=== PATIENT | female | born 1945 | race Caucasian/White ===

== ENCOUNTER 2017-02-06 10:06 | Inpatient (IN) | payer OTHER, MEDICARE ==
[~2017-02-06] VITALS: Ht 170.2 cm; Wt 104.3 kg
[2017-02-06 12:03] LABS: PLATELET COUNT 599 x10^3mcL (130-400); RED CELL DISTRIBUTION WIDTH 25.1 % (11.5-14.5)
[2017-02-06 12:10] LABS: ALKALINE PHOSPHATASE 110 U/L (46-116); ALT/SGPT 22 U/L (14-59); AST/SGOT 22 U/L (15-37); BILIRUBIN TOTAL 0.6 mg/dL (0.20-1.00); CALCIUM 7.7 mg/dL (8.5-10.1); CARBON DIOXIDE 25.9 mmol/L (21-32); CHLORIDE SERUM 90 mmol/L (98-107); CREATININE SERUM 1.2 mg/dL (0.6-1.0); GLUCOSE SERUM 100 mg/dL (74-106); POTASSIUM SERUM 3.9 mmol/L (3.5-5.1); TOTAL PROTEIN, SERUM 6.4 g/dL (6.4-8.2)
[2017-02-06 12:17] LABS: ALBUMIN 2.8 g/dL (3.4-5.0); SODIUM SERUM 124 mmol/L (136-145)
[2017-02-06 13:04] LABS: BAND NEUTROPHIL 4 % (0-10); BASOPHIL 0 % (0-2); MONOCYTE 8 % (0-7); SEGMENTED NEUTROPHILS 83 % (37-75)
[2017-02-06 13:05] LABS: rbc morphology (normal/abnorm) ABNORMAL (NORMAL)
[2017-02-06] MEDS ORDERED: RANITIDINE HYD300 MG PO (13:26)
[2017-02-06] MEDS ORDERED: ACYCLOVIR400 MG PO (13:27)
[2017-02-06] MEDS ORDERED: SYNTHROID0.125 MG PO (13:27)
[2017-02-06] MEDS ORDERED: COUMADIN2.5 MG PO (13:28)
[2017-02-06] MEDS ORDERED: ZESTRIL20 MG PO (13:28)
[2017-02-06] MEDS ORDERED: TOPROL XL100 MG PO (13:28)
[2017-02-06] MEDS ORDERED: ASPIR 8181 MG PO ×2 (13:30)
[2017-02-06] MEDS ORDERED: EFFEXOR-XR150 MG PO (13:33)
[2017-02-06] MEDS ORDERED: NOR10T PO (13:33)
[2017-02-06] MEDS ORDERED: PREDNISONE20 MG PO (13:34)
[2017-02-06] MEDS ORDERED: FLOVENT HF0.044 MG/1 IH (13:35)
[2017-02-06] MEDS ORDERED: NITROGLYCERIN0.4 MG SL (13:35)
[2017-02-06 14:29] LABS: CHOLESTEROL/HDL RATIO 1.8
[2017-02-06 14:38] LABS: FREE T4 1.77 ng/dL (0.76-1.46); FREE THYROXINE INDEX 3.3 ug/dL (1.4-4.5); T4(THYROXINE) 7.8 ug/dL (4.7-13.3)
[2017-02-06 14:39] LABS: T3 TOTAL 0.67 ng/mL
[2017-02-06 15:12] VITALS: BP 122/69
[2017-02-06 16:00] VITALS: BP 124/54
[2017-02-06 16:43] VITALS: BP 135/69
[2017-02-06 18:37] LABS: UA SPECIFIC GRAVITY 1.025 (1.005-1.035); microscopic required? YES; urine erythrocyte TRACE (NEGATIVE)
[2017-02-06 21:09] VITALS: Ht 170.2 cm; Wt 104.3 kg
[2017-02-06 22:11] VITALS: BP 165/48
[2017-02-07] VITALS (8 sets, daily range): BP systolic 116–130; BP diastolic 52–90
[2017-02-07 07:21] LABS: CALCIUM 7.2 mg/dL (8.5-10.1); CARBON DIOXIDE 26.6 mmol/L (21-32); CHLORIDE SERUM 92 mmol/L (98-107); CREATININE SERUM 1.1 mg/dL (0.6-1.0); GLUCOSE SERUM 110 mg/dL (74-106); MAGNESIUM 1.6 mg/dL (1.8-2.4); PHOSPHOROUS 3.7 mg/dL (2.5-4.9); POTASSIUM SERUM 3.7 mmol/L (3.5-5.1); SODIUM SERUM 126 mmol/L (136-145)
[2017-02-07 07:58] LABS: BASOPHIL % 0 % (0-2); RED CELL DISTRIBUTION WIDTH 26.4 % (11.5-14.5)
[2017-02-07 10:41] LABS: rbc morphology (normal/abnorm) ABNORMAL (NORMAL)
[2017-02-07 10:43] LABS: PLATELET COUNT 435 x10^3mcL (130-400)
[2017-02-07 12:33] LABS: ALBUMIN 2.2 g/dL (3.4-5.0); BILIRUBIN DIRECT 0.23 mg/dL (0.0-0.2); BILIRUBIN TOTAL 0.6 mg/dL (0.20-1.00); TOTAL PROTEIN, SERUM 5.4 g/dL (6.4-8.2)
[2017-02-07 13:44] LABS: BASOPHIL % 0 % (0-2); PLATELET COUNT 446 x10^3mcL (130-400); RED CELL DISTRIBUTION WIDTH 25.1 % (11.5-14.5)
[2017-02-07 14:21] LABS: rbc morphology (normal/abnorm) ABNORMAL (NORMAL)
[2017-02-08 01:00] VITALS: BP 144/87
[2017-02-08 06:02] VITALS: BP 141/69
[2017-02-08 06:24] LABS: BASOPHIL % 0 % (0-2); PLATELET COUNT 411 x10^3mcL (130-400); RED CELL DISTRIBUTION WIDTH 23.6 % (11.5-14.5)
[2017-02-08 06:25] LABS: rbc morphology (normal/abnorm) ABNORMAL (NORMAL)
[2017-02-08 06:36] LABS: CALCIUM 7.7 mg/dL (8.5-10.1); CARBON DIOXIDE 27.7 mmol/L (21-32); CHLORIDE SERUM 93 mmol/L (98-107); CREATININE SERUM 0.9 mg/dL (0.6-1.0); GLUCOSE SERUM 97 mg/dL (74-106); MAGNESIUM 1.6 mg/dL (1.8-2.4); PHOSPHOROUS 3.1 mg/dL (2.5-4.9); POTASSIUM SERUM 3.7 mmol/L (3.5-5.1); SODIUM SERUM 129 mmol/L (136-145)
[2017-02-08 10:51] VITALS: BP 172/78
[2017-02-08 15:03] VITALS: BP 155/59
[2017-02-08 18:39] VITALS: BP 130/54
[2017-02-08 21:46] VITALS: BP 121/52
[2017-02-09 06:03] VITALS: BP 125/59
[2017-02-09 06:40] LABS: CALCIUM 7.7 mg/dL (8.5-10.1); CARBON DIOXIDE 29.9 mmol/L (21-32); CHLORIDE SERUM 94 mmol/L (98-107); CREATININE SERUM 0.8 mg/dL (0.6-1.0); GLUCOSE SERUM 97 mg/dL (74-106); MAGNESIUM 1.9 mg/dL (1.8-2.4); PHOSPHOROUS 3.5 mg/dL (2.5-4.9); POTASSIUM SERUM 3.4 mmol/L (3.5-5.1); SODIUM SERUM 129 mmol/L (136-145)
[2017-02-09 06:43] LABS: BASOPHIL % 0.4 % (0-2); PLATELET COUNT 389 x10^3mcL (130-400)
[2017-02-09 09:29] VITALS: BP 148/63
[2017-02-09 13:58] VITALS: BP 142/78
[2017-02-09 18:05] VITALS: BP 110/55
[2017-02-09 21:10] VITALS: BP 98/50
[2017-02-10 06:06] LABS: BASOPHIL % 0.1 % (0-2); PLATELET COUNT 367 x10^3mcL (130-400)
[2017-02-10 06:31] LABS: CALCIUM 7.8 mg/dL (8.5-10.1); CARBON DIOXIDE 29.6 mmol/L (21-32); CHLORIDE SERUM 94 mmol/L (98-107); CREATININE SERUM 0.9 mg/dL (0.6-1.0); GLUCOSE SERUM 89 mg/dL (74-106); MAGNESIUM 1.7 mg/dL (1.8-2.4); PHOSPHOROUS 3.9 mg/dL (2.5-4.9); POTASSIUM SERUM 3.1 mmol/L (3.5-5.1); SODIUM SERUM 130 mmol/L (136-145)
[2017-02-10 06:53] LABS: RED CELL DISTRIBUTION WIDTH 24.6 % (11.5-14.5)
[2017-02-10 07:07] VITALS: BP 121/47
[2017-02-10 09:19] VITALS: BP 138/68
[2017-02-10 14:05] VITALS: BP 120/65
[2017-02-10 18:50] VITALS: BP 166/45
[2017-02-10 19:50] VITALS: BP 135/63
[2017-02-10 22:20] VITALS: BP 109/54
[2017-02-11 06:04] VITALS: BP 121/52
[2017-02-11 06:36] LABS: BASOPHIL % 0.2 % (0-2); PLATELET COUNT 388 x10^3mcL (130-400)
[2017-02-11 06:46] LABS: CALCIUM 8.1 mg/dL (8.5-10.1); CARBON DIOXIDE 28.1 mmol/L (21-32); CHLORIDE SERUM 94 mmol/L (98-107); GLUCOSE SERUM 88 mg/dL (74-106); MAGNESIUM 1.7 mg/dL (1.8-2.4); PHOSPHOROUS 4.2 mg/dL (2.5-4.9); SODIUM SERUM 129 mmol/L (136-145)
[2017-02-11 07:32] LABS: RED CELL DISTRIBUTION WIDTH 24.1 % (11.5-14.5)
[2017-02-11 08:22] VITALS: BP 132/66
[2017-02-11 08:55] VITALS: BP 132/66
[2017-02-11 09:20] LABS: ovalocyte/elliptocyte 1+; rbc morphology (normal/abnorm) ABNORMAL (NORMAL); tear drop cell (dacryocyte) 2+
[2017-02-11 17:35] VITALS: BP 111/66
[2017-02-11 19:30] VITALS: BP 124/57
[2017-02-11 21:33] VITALS: BP 124/57
[2017-02-12 06:20] VITALS: BP 134/67
[2017-02-12 06:46] LABS: CALCIUM 8.2 mg/dL (8.5-10.1); CARBON DIOXIDE 28.1 mmol/L (21-32); CHLORIDE SERUM 95 mmol/L (98-107); GLUCOSE SERUM 85 mg/dL (74-106); MAGNESIUM 1.6 mg/dL (1.8-2.4); PHOSPHOROUS 4.6 mg/dL (2.5-4.9); POTASSIUM SERUM 4.2 mmol/L (3.5-5.1); SODIUM SERUM 129 mmol/L (136-145)
[2017-02-12 07:09] LABS: BASOPHIL % 0.5 % (0-2); PLATELET COUNT 371 x10^3mcL (130-400); RED CELL DISTRIBUTION WIDTH 24.2 % (11.5-14.5)
[2017-02-12 10:20] VITALS: BP 126/57
[2017-02-12 18:55] VITALS: BP 105/52
[2017-02-12 19:20] VITALS: BP 117/53
[2017-02-12 21:55] VITALS: BP 117/53
[2017-02-13 05:40] VITALS: BP 113/59
[2017-02-13 06:29] LABS: PLATELET COUNT 372 x10^3mcL (130-400)
[2017-02-13 06:43] LABS: BASOPHIL % 0 % (0-2); CALCIUM 8.2 mg/dL (8.5-10.1); CARBON DIOXIDE 27.1 mmol/L (21-32); CHLORIDE SERUM 93 mmol/L (98-107); CREATININE SERUM 1.1 mg/dL (0.6-1.0); GLUCOSE SERUM 82 mg/dL (74-106); MAGNESIUM 1.8 mg/dL (1.8-2.4); PHOSPHOROUS 4.7 mg/dL (2.5-4.9); POTASSIUM SERUM 3.8 mmol/L (3.5-5.1); RED CELL DISTRIBUTION WIDTH 23.7 % (11.5-14.5); SODIUM SERUM 128 mmol/L (136-145)
[2017-02-13 06:44] LABS: rbc morphology (normal/abnorm) ABNORMAL (NORMAL)
[2017-02-13 09:55] VITALS: BP 138/56
[2017-02-13] MEDS ORDERED: COU2 PO (17:07)
[2017-02-13] MEDS ORDERED: ZOS3PM IV (17:08)
[2017-02-13] MEDS ORDERED: CAR60 PO (17:11)
[2017-02-13] MEDS ORDERED: LASIX20 MG PO (17:12)
[2017-02-13 18:24] VITALS: BP 102/64
[2017-02-13 18:30] VITALS: BP 102/64
== END 2017-02-13 20:28 | DRG 579 ==
LOC: ED 10:06 → DU 12:50 → MU 12:50 → DU 14:18 → MU 02-10 23:46
PROVIDERS: Emergency Medicine; Family Medicine; ADMIT Family Medicine
PROC: 0KBT0ZZ Excision of Left Lower Leg Muscle, Open Approach (ICD-10-PCS; principal; 2017-02-08)
DX: L03.116 Cellulitis of left lower limb (principal); N17.0 Acute kidney failure with tubular necrosis; E43 Unspecified severe protein-calorie malnutrition; I50.43 Acute on chronic combined systolic (congestive) and diastolic (congestive) heart failure; N39.0 Urinary tract infection, site not specified; E87.1 Hypo-osmolality and hyponatremia; D62 Acute posthemorrhagic anemia; L97.829 Non-pressure chronic ulcer of other part of left lower leg with unspecified severity; B96.5 Pseudomonas (aeruginosa) (mallei) (pseudomallei) as the cause of diseases classified elsewhere; I83.028 Varicose veins of left lower extremity with ulcer other part of lower leg; I11.0 Hypertensive heart disease with heart failure; I48.91 Unspecified atrial fibrillation; T38.0X5A Adverse effect of glucocorticoids and synthetic analogues, initial encounter; I16.0 Hypertensive urgency; B00.9 Herpesviral infection, unspecified; B37.2 Candidiasis of skin and nail; I25.10 Atherosclerotic heart disease of native coronary artery without angina pectoris; E05.80 Other thyrotoxicosis without thyrotoxic crisis or storm; F41.8 Other specified anxiety disorders; Z79.01 Long term (current) use of anticoagulants; Z79.82 Long term (current) use of aspirin; Z79.52 Long term (current) use of systemic steroids; Z95.5 Presence of coronary angioplasty implant and graft; Z85.3 Personal history of malignant neoplasm of breast; Z90.11 Acquired absence of right breast and nipple; Z85.830 Personal history of malignant neoplasm of bone; Z87.891 Personal history of nicotine dependence; Z68.36 Body mass index [BMI] 36.0-36.9, adult; Y92.039 Unspecified place in apartment as the place of occurrence of the external cause
CPT/HCPCS: 83880; 84439; 94150; 97110-GP; 97116-GP; 97530-GP; J0290; J1450; J1644; J1940; J2001; J2543; J3430; J3475; J3490; J7030; J7050; J7512; J7620; J7633; P9016; Q0092; Q0163

== ENCOUNTER 2017-02-26 06:18 | Observation (INO) | payer OTHER, MEDICARE ==
[~2017-02-26] VITALS: Ht 167.6 cm; Wt 108.5 kg
[~2017-02-26 06:18] MED LIST: ACYCLOVIR400 MG PO; ASPIR 8181 MG PO; CAR60 PO; COU2 PO; COUMADIN2.5 MG PO; EFFEXOR-XR150 MG PO; FLOVENT HF0.044 MG/1 IH; LASIX20 MG PO; NITROGLYCERIN0.4 MG SL; NOR10T PO; PREDNISONE20 MG PO; RANITIDINE HYD300 MG PO; SYNTHROID0.125 MG PO; TOPROL XL100 MG PO; ZESTRIL20 MG PO; ZOS3PM IV
[2017-02-26 07:17] LABS: BASOPHIL % 0 % (0-2)
[2017-02-26 07:18] LABS: CHLORIDE SERUM 94 mmol/L (98-107); POTASSIUM SERUM 5.2 mmol/L (3.5-5.1); SODIUM SERUM 127 mmol/L (136-145)
[2017-02-26 07:52] LABS: ALBUMIN 2.4 g/dL (3.4-5.0); ALKALINE PHOSPHATASE 99 U/L (46-116); ALT/SGPT 11 U/L (14-59); AST/SGOT 26 U/L (15-37); BILIRUBIN TOTAL 0.44 mg/dL (0.20-1.00); CALCIUM 8.5 mg/dL (8.5-10.1); CARBON DIOXIDE 27.5 mmol/L (21-32); CREATININE SERUM 1.3 mg/dL (0.6-1.0); GLUCOSE SERUM 92 mg/dL (74-106); TOTAL PROTEIN, SERUM 6.2 g/dL (6.4-8.2)
[2017-02-26 09:25] LABS: RED CELL DISTRIBUTION WIDTH 24.1 % (11.5-14.5)
[2017-02-26 09:26] LABS: PLATELET COUNT 562 x10^3mcL (130-400)
[2017-02-26 11:19] LABS: CHOLESTEROL/HDL RATIO 3.4; MAGNESIUM 1.8 mg/dL (1.8-2.4); PHOSPHOROUS 5.1 mg/dL (2.5-4.9)
[2017-02-26 11:29] LABS: FREE T4 1.62 ng/dL (0.76-1.46); FREE THYROXINE INDEX 3.4 ug/dL (1.4-4.5); T4(THYROXINE) 8.5 ug/dL (4.7-13.3)
[2017-02-26 11:33] LABS: T3 TOTAL 0.87 ng/mL
[2017-02-26 12:06] VITALS: BP 111/65
[2017-02-26 21:54] VITALS: BP 115/53
[2017-02-27 00:59] VITALS: BP 115/53
[2017-02-27 02:17] LABS: UA SPECIFIC GRAVITY 1.025 (1.005-1.035); microscopic required? YES; urine erythrocyte NEGATIVE (NEGATIVE)
[2017-02-27 02:27] LABS: AMPHETAMINE QUAL UR NONE DETECTED (NEG <=1000)
[2017-02-27 06:24] VITALS: BP 107/61
[2017-02-27 07:15] LABS: BASOPHIL % 0.6 % (0-2)
[2017-02-27 07:58] LABS: CALCIUM 8.2 mg/dL (8.5-10.1); CARBON DIOXIDE 24.7 mmol/L (21-32); CHLORIDE SERUM 96 mmol/L (98-107); CREATININE SERUM 1.5 mg/dL (0.6-1.0); MAGNESIUM 1.9 mg/dL (1.8-2.4); POTASSIUM SERUM 4.6 mmol/L (3.5-5.1); SODIUM SERUM 130 mmol/L (136-145)
[2017-02-27 08:08] LABS: GLUCOSE SERUM 57 mg/dL (74-106)
[2017-02-27 08:33] LABS: PLATELET COUNT 428 x10^3mcL (130-400); RED CELL DISTRIBUTION WIDTH 24.9 % (11.5-14.5)
[2017-02-27 09:07] VITALS: BP 136/78
[2017-02-27 13:19] VITALS: BP 103/45
[2017-02-27 17:42] VITALS: BP 82/31
[2017-02-27 21:23] VITALS: BP 84/42
[2017-02-28 06:18] VITALS: BP 86/53
[2017-02-28 07:46] LABS: BASOPHIL % 1.8 % (0-2)
[2017-02-28 07:48] LABS: PLATELET COUNT 438 x10^3mcL (130-400); RED CELL DISTRIBUTION WIDTH 24.8 % (11.5-14.5)
[2017-02-28 08:04] LABS: CALCIUM 7.9 mg/dL (8.5-10.1); CARBON DIOXIDE 27.7 mmol/L (21-32); CHLORIDE SERUM 99 mmol/L (98-107); CREATININE SERUM 1.7 mg/dL (0.6-1.0); GLUCOSE SERUM 99 mg/dL (74-106); MAGNESIUM 1.8 mg/dL (1.8-2.4); POTASSIUM SERUM 4.6 mmol/L (3.5-5.1); SODIUM SERUM 133 mmol/L (136-145)
[2017-02-28 09:45] VITALS: BP 129/54
[2017-02-28 14:33] VITALS: BP 114/42
[2017-02-28] MEDS ORDERED: BACTRIM DS1 TAB PO (15:27)
[2017-02-28] MEDS ORDERED: LAC PO (15:28)
[2017-02-28 17:00] VITALS: BP 118/55
== END 2017-02-28 17:47 | DRG 640 ==
LOC: ED 06:18 → DU 10:23
PROVIDERS: Emergency Medicine; Family Medicine; ADMIT Family Medicine
DX: E87.1 Hypo-osmolality and hyponatremia (principal); I50.43 Acute on chronic combined systolic (congestive) and diastolic (congestive) heart failure; E43 Unspecified severe protein-calorie malnutrition; N17.0 Acute kidney failure with tubular necrosis; N39.0 Urinary tract infection, site not specified; I42.9 Cardiomyopathy, unspecified; B00.89 Other herpesviral infection; E86.0 Dehydration; I10 Essential (primary) hypertension; E87.5 Hyperkalemia; M25.522 Pain in left elbow; K64.8 Other hemorrhoids; E83.39 Other disorders of phosphorus metabolism; D47.3 Essential (hemorrhagic) thrombocythemia; I48.91 Unspecified atrial fibrillation; E87.8 Other disorders of electrolyte and fluid balance, not elsewhere classified; F41.8 Other specified anxiety disorders; E03.9 Hypothyroidism, unspecified; M19.90 Unspecified osteoarthritis, unspecified site; E66.9 Obesity, unspecified; Z68.38 Body mass index [BMI] 38.0-38.9, adult; Z79.01 Long term (current) use of anticoagulants; Z95.5 Presence of coronary angioplasty implant and graft
CPT/HCPCS: 80307; 83880; 84439; 97530-GP; G0378; J0696; J2270; J3490; J7030; J7620; Q0092

== ENCOUNTER 2017-03-28 11:36 | Inpatient (IN) | payer OTHER, MEDICARE ==
[~2017-03-28] VITALS: Ht 167.6 cm; Wt 112.6 kg
[~2017-03-28 11:36] MED LIST changes: +BACTRIM DS1 TAB PO; +LAC PO
[2017-03-28 12:21] LABS: PLATELET COUNT 346 x10^3mcL (130-400)
[2017-03-28 12:23] LABS: BASOPHIL % 0 % (0-2); RED CELL DISTRIBUTION WIDTH 22.4 % (11.5-14.5)
[2017-03-28 12:38] LABS: ALKALINE PHOSPHATASE 120 U/L (46-116); ALT/SGPT 15 U/L (14-59); AST/SGOT 28 U/L (15-37); BILIRUBIN TOTAL 0.5 mg/dL (0.20-1.00); CALCIUM 8.1 mg/dL (8.5-10.1); CARBON DIOXIDE 24.1 mmol/L (21-32); CREATININE SERUM 1.8 mg/dL (0.6-1.0); GLUCOSE SERUM 79 mg/dL (74-106); POTASSIUM SERUM 4.7 mmol/L (3.5-5.1)
[2017-03-28 12:50] LABS: CHLORIDE SERUM 90 mmol/L (98-107)
[2017-03-28 12:53] LABS: ALBUMIN 2.7 g/dL (3.4-5.0); TOTAL PROTEIN, SERUM 5.9 g/dL (6.4-8.2)
[2017-03-28 12:54] LABS: SODIUM SERUM 124 mmol/L (136-145)
[2017-03-28 14:51] LABS: CHOLESTEROL/HDL RATIO 4.4
[2017-03-28 15:00] LABS: FREE T4 1.33 ng/dL (0.76-1.46); FREE THYROXINE INDEX 2.7 ug/dL (1.4-4.5); T3 TOTAL 0.67 ng/mL; T4(THYROXINE) 6.8 ug/dL (4.7-13.3)
[2017-03-28 15:43] LABS: MAGNESIUM 1.8 mg/dL (1.8-2.4); PHOSPHOROUS 4.7 mg/dL (2.5-4.9)
[2017-03-28 16:43] LABS: URIC ACID 8.2 mg/dL (2.6-6.0)
[2017-03-28 17:48] VITALS: BP 108/48
[2017-03-28 20:49] VITALS: BP 98/52
[2017-03-28 23:34] LABS: microscopic required? NO
[2017-03-28 23:39] LABS: UA SPECIFIC GRAVITY 1.025 (1.005-1.035); urine erythrocyte NEGATIVE (NEGATIVE)
[2017-03-29 04:14] VITALS: BP 98/52
[2017-03-29 05:46] VITALS: BP 131/62
[2017-03-29 06:49] LABS: PLATELET COUNT 268 x10^3mcL (130-400)
[2017-03-29 06:53] LABS: BASOPHIL % 0 % (0-2); RED CELL DISTRIBUTION WIDTH 22.7 % (11.5-14.5)
[2017-03-29 07:04] LABS: CALCIUM 7.8 mg/dL (8.5-10.1); CARBON DIOXIDE 24.6 mmol/L (21-32); CHLORIDE SERUM 90 mmol/L (98-107); CREATININE SERUM 1.7 mg/dL (0.6-1.0); GLUCOSE SERUM 73 mg/dL (74-106); MAGNESIUM 1.8 mg/dL (1.8-2.4); PHOSPHOROUS 4.1 mg/dL (2.5-4.9); POTASSIUM SERUM 4.3 mmol/L (3.5-5.1); SODIUM SERUM 126 mmol/L (136-145)
[2017-03-29 09:29] VITALS: BP 103/50
[2017-03-29 13:47] VITALS: BP 115/47
[2017-03-29 17:07] VITALS: BP 143/57
[2017-03-29 21:49] VITALS: BP 129/45
[2017-03-30 05:56] VITALS: BP 95/50
[2017-03-30 06:09] LABS: PLATELET COUNT 252 x10^3mcL (130-400)
[2017-03-30 06:26] LABS: CARBON DIOXIDE 26.6 mmol/L (21-32); CHLORIDE SERUM 99 mmol/L (98-107); CREATININE SERUM 1.1 mg/dL (0.6-1.0); GLUCOSE SERUM 90 mg/dL (74-106); MAGNESIUM 1.9 mg/dL (1.8-2.4); PHOSPHOROUS 3.1 mg/dL (2.5-4.9); SODIUM SERUM 133 mmol/L (136-145)
[2017-03-30 07:13] LABS: RED CELL DISTRIBUTION WIDTH 22.8 % (11.5-14.5)
[2017-03-30 08:01] LABS: BAND NEUTROPHIL 3 % (0-10); BASOPHIL 0 % (0-2); MONOCYTE 20 % (0-7); SEGMENTED NEUTROPHILS 61 % (37-75); rbc morphology (normal/abnorm) ABNORMAL (NORMAL)
[2017-03-30 08:02] LABS: PLATELET MORPHOLOGY LARGE PLATELET SEEN; tear drop cell (dacryocyte) 1+
[2017-03-30 10:15] VITALS: BP 126/58
[2017-03-30] MEDS ORDERED: FER300 PO (10:59)
[2017-03-30] MEDS ORDERED: PHARMASSURE VI500 MG PO (11:00)
[2017-03-30 12:35] VITALS: BP 126/58
== END 2017-03-30 14:02 | disposition home health service (06) | DRG 640 ==
LOC: ED 11:36 → DU 13:58
PROVIDERS: Emergency Medicine; Family Medicine; ADMIT Family Medicine
DX: E87.1 Hypo-osmolality and hyponatremia (principal); N17.0 Acute kidney failure with tubular necrosis; E43 Unspecified severe protein-calorie malnutrition; C79.51 Secondary malignant neoplasm of bone; I42.9 Cardiomyopathy, unspecified; Z68.41 Body mass index [BMI] 40.0-44.9, adult; I48.2 Chronic atrial fibrillation; T45.515A Adverse effect of anticoagulants, initial encounter; C50.911 Malignant neoplasm of unspecified site of right female breast; I25.10 Atherosclerotic heart disease of native coronary artery without angina pectoris; I10 Essential (primary) hypertension; M19.90 Unspecified osteoarthritis, unspecified site; D64.9 Anemia, unspecified; E89.0 Postprocedural hypothyroidism; F41.0 Panic disorder [episodic paroxysmal anxiety]; E66.01 Morbid (severe) obesity due to excess calories; Z79.01 Long term (current) use of anticoagulants; Z87.891 Personal history of nicotine dependence; Z95.5 Presence of coronary angioplasty implant and graft; Z90.11 Acquired absence of right breast and nipple; Z91.81 History of falling; Y92.009 Unspecified place in unspecified non-institutional (private) residence as the place of occurrence of the external cause
CPT/HCPCS: 83880; 84439; 97110-GP; 97530-GP; J1940; J3430; J3490; J7030; Q0092

== ENCOUNTER 2017-05-09 17:53 | Inpatient (IN) | payer OTHER, MEDICARE ==
[~2017-05-09] VITALS: Ht 167.6 cm; Wt 123.4 kg
[~2017-05-09 17:53] MED LIST changes: +FER300 PO; +PHARMASSURE VI500 MG PO
[2017-05-09] MEDS ORDERED: PRO40 PO (18:23)
[2017-05-09] MEDS ORDERED: LOP100 PO (18:23)
[2017-05-09] MEDS ORDERED: CLARITIN10 MG PO (18:23)
[2017-05-09] MEDS ORDERED: COUMADIN1 MG PO (18:24)
[2017-05-09] MEDS ORDERED: CEPHALEXIN500 M1 PO (18:24)
[2017-05-09] MEDS ORDERED: EFFEXOR XR150 MG PO (18:24)
[2017-05-09 19:04] LABS: BASOPHIL % 0.2 % (0-2); PLATELET COUNT 400 x10^3mcL (130-400)
[2017-05-09 19:06] LABS: RED CELL DISTRIBUTION WIDTH 20.2 % (11.5-14.5)
[2017-05-09 19:09] LABS: ALKALINE PHOSPHATASE 134 U/L (46-116); ALT/SGPT 14 U/L (14-59); AST/SGOT 23 U/L (15-37); CALCIUM 8.2 mg/dL (8.5-10.1); CARBON DIOXIDE 25.4 mmol/L (21-32); CHLORIDE SERUM 92 mmol/L (98-107); CREATININE SERUM 0.8 mg/dL (0.6-1.0); GLUCOSE SERUM 81 mg/dL (74-106); POTASSIUM SERUM 4.8 mmol/L (3.5-5.1); SODIUM SERUM 126 mmol/L (136-145)
[2017-05-09 19:15] LABS: ALBUMIN 2.6 g/dL (3.4-5.0); TOTAL PROTEIN, SERUM 5.8 g/dL (6.4-8.2)
[2017-05-09 19:25] LABS: ovalocyte/elliptocyte 2+; rbc morphology (normal/abnorm) ABNORMAL (NORMAL); tear drop cell (dacryocyte) 1+
[2017-05-09 19:42] LABS: CK-MB 0.9 ng/mL (0-3.6)
[2017-05-09 20:13] LABS: microscopic required? YES; urine erythrocyte NEGATIVE (NEGATIVE)
[2017-05-09 22:20] LABS: MAGNESIUM 1.6 mg/dL (1.8-2.4); PHOSPHOROUS 3.3 mg/dL (2.5-4.9)
[2017-05-09 22:26] LABS: CHOLESTEROL/HDL RATIO 3.1
[2017-05-09 22:28] LABS: T3 TOTAL 0.66 ng/mL
[2017-05-09 22:30] LABS: FREE T4 1.75 ng/dL (0.76-1.46); FREE THYROXINE INDEX 3.4 ug/dL (1.4-4.5); T4(THYROXINE) 8.6 ug/dL (4.7-13.3)
[2017-05-09 22:48] VITALS: BP 136/55
[2017-05-09] MEDS ORDERED: METOPROLOL TAR100 MG PO (23:32)
[2017-05-10] VITALS (7 sets, daily range): BP systolic 97–134; BP diastolic 26–62
[2017-05-10 05:58] LABS: BASOPHIL % 0.1 % (0-2); PLATELET COUNT 370 x10^3mcL (130-400)
[2017-05-10 06:33] LABS: CALCIUM 7.9 mg/dL (8.5-10.1); CHLORIDE SERUM 94 mmol/L (98-107); CREATININE SERUM 0.8 mg/dL (0.6-1.0); GLUCOSE SERUM 82 mg/dL (74-106); MAGNESIUM 1.9 mg/dL (1.8-2.4); PHOSPHOROUS 3.1 mg/dL (2.5-4.9); POTASSIUM SERUM 4.9 mmol/L (3.5-5.1); SODIUM SERUM 127 mmol/L (136-145)
[2017-05-10 07:13] LABS: RED CELL DISTRIBUTION WIDTH 19.4 % (11.5-14.5)
[2017-05-11 06:06] VITALS: BP 91/58
[2017-05-11 06:29] LABS: CALCIUM 7.9 mg/dL (8.5-10.1); CARBON DIOXIDE 28.8 mmol/L (21-32); CHLORIDE SERUM 92 mmol/L (98-107); CREATININE SERUM 0.7 mg/dL (0.6-1.0); GLUCOSE SERUM 81 mg/dL (74-106); MAGNESIUM 1.6 mg/dL (1.8-2.4); PHOSPHOROUS 3.3 mg/dL (2.5-4.9); POTASSIUM SERUM 3.3 mmol/L (3.5-5.1); SODIUM SERUM 128 mmol/L (136-145)
[2017-05-11 06:56] LABS: BASOPHIL % 0.3 % (0-2); PLATELET COUNT 342 x10^3mcL (130-400)
[2017-05-11 06:57] LABS: RED CELL DISTRIBUTION WIDTH 20.1 % (11.5-14.5)
[2017-05-11 07:47] LABS: rbc morphology (normal/abnorm) ABNORMAL (NORMAL)
[2017-05-11 09:21] VITALS: BP 114/50
[2017-05-11 12:21] VITALS: BP 104/52
[2017-05-11 17:45] VITALS: BP 100/49
[2017-05-11 18:01] VITALS: BP 107/61
[2017-05-11 21:33] VITALS: BP 128/53
[2017-05-12 05:33] VITALS: BP 99/60
[2017-05-12 05:54] LABS: RED BLOOD CELLS 3.64 M/mm3 (4.10-5.10)
[2017-05-12 05:57] LABS: PLATELET COUNT 347 x10^3mcL (130-400)
[2017-05-12 06:25] LABS: IRON 13 ug/dL (50-170); TOTAL IRON BINDING CAPACITY 293 ug/dL (250-450)
[2017-05-12 06:42] LABS: BASOPHIL % 0 % (0-2); RED CELL DISTRIBUTION WIDTH 19.9 % (11.5-14.5)
[2017-05-12 07:31] LABS: CARBON DIOXIDE 28.3 mmol/L (21-32); CHLORIDE SERUM 90 mmol/L (98-107); CREATININE SERUM 0.8 mg/dL (0.6-1.0); GLUCOSE SERUM 92 mg/dL (74-106); MAGNESIUM 1.8 mg/dL (1.8-2.4); PHOSPHOROUS 3.5 mg/dL (2.5-4.9); POTASSIUM SERUM 3.1 mmol/L (3.5-5.1); SODIUM SERUM 126 mmol/L (136-145)
[2017-05-12 08:55] VITALS: BP 125/64
[2017-05-12 13:55] VITALS: BP 109/62
[2017-05-12 17:28] VITALS: BP 125/83
[2017-05-12 20:00] VITALS: BP 102/54
[2017-05-13 06:08] VITALS: BP 109/48
[2017-05-13 07:16] LABS: PLATELET COUNT 334 x10^3mcL (130-400)
[2017-05-13 07:26] LABS: CARBON DIOXIDE 23.3 mmol/L (21-32); CHLORIDE SERUM 89 mmol/L (98-107); CREATININE SERUM 0.8 mg/dL (0.6-1.0); GLUCOSE SERUM 99 mg/dL (74-106); POTASSIUM SERUM 3.5 mmol/L (3.5-5.1)
[2017-05-13 07:32] LABS: RED CELL DISTRIBUTION WIDTH 20.5 % (11.5-14.5); SODIUM SERUM 123 mmol/L (136-145)
[2017-05-13 08:55] VITALS: BP 103/61
[2017-05-13 09:45] VITALS: BP 106/51
[2017-05-13 09:51] LABS: BAND NEUTROPHIL 0 % (0-10); BASOPHIL 0 % (0-2); MONOCYTE 1 % (0-7); SEGMENTED NEUTROPHILS 97 % (37-75)
[2017-05-13 09:52] LABS: rbc morphology (normal/abnorm) ABNORMAL (NORMAL)
[2017-05-13 12:23] LABS: PLATELET COUNT 390 x10^3mcL (130-400)
[2017-05-13 12:24] LABS: RED CELL DISTRIBUTION WIDTH 19.8 % (11.5-14.5)
[2017-05-13 12:28] VITALS: BP 106/51
[2017-05-13 12:32] LABS: CARBON DIOXIDE 29.7 mmol/L (21-32); CHLORIDE SERUM 90 mmol/L (98-107); CREATININE SERUM 0.9 mg/dL (0.6-1.0); GLUCOSE SERUM 122 mg/dL (74-106); SODIUM SERUM 126 mmol/L (136-145)
[2017-05-13 14:00] LABS: BAND NEUTROPHIL 1 % (0-10); MONOCYTE 4 % (0-7); SEGMENTED NEUTROPHILS 94 % (37-75); rbc morphology (normal/abnorm) ABNORMAL (NORMAL)
[2017-05-13 14:01] VITALS: BP 113/59
[2017-05-13 21:48] VITALS: BP 91/50
[2017-05-14 06:10] VITALS: BP 116/59
[2017-05-14 07:28] LABS: CARBON DIOXIDE 26.9 mmol/L (21-32); CHLORIDE SERUM 90 mmol/L (98-107); GLUCOSE SERUM 88 mg/dL (74-106); POTASSIUM SERUM 3.4 mmol/L (3.5-5.1); SODIUM SERUM 128 mmol/L (136-145)
[2017-05-14 07:44] LABS: PLATELET COUNT 332 x10^3mcL (130-400)
[2017-05-14 07:48] LABS: RED CELL DISTRIBUTION WIDTH 19.9 % (11.5-14.5)
[2017-05-14 09:36] VITALS: BP 127/64
[2017-05-14 10:37] LABS: BAND NEUTROPHIL 8 % (0-10); BASOPHIL 0 % (0-2); MONOCYTE 4 % (0-7); SEGMENTED NEUTROPHILS 84 % (37-75)
[2017-05-14 10:38] LABS: rbc morphology (normal/abnorm) ABNORMAL (NORMAL)
[2017-05-14 10:41] LABS: ovalocyte/elliptocyte 1+; target cell (codocyte) 1+
[2017-05-14 13:20] VITALS: BP 98/55
[2017-05-14 18:02] VITALS: BP 106/69
[2017-05-14 21:20] VITALS: BP 133/49
[2017-05-15 05:49] VITALS: BP 98/49
[2017-05-15 06:34] LABS: PLATELET COUNT 309 x10^3mcL (130-400)
[2017-05-15 07:04] LABS: BASOPHIL % 0 % (0-2); RED CELL DISTRIBUTION WIDTH 19.9 % (11.5-14.5)
[2017-05-15 08:27] LABS: CALCIUM 7.9 mg/dL (8.5-10.1); CHLORIDE SERUM 90 mmol/L (98-107); CREATININE SERUM 1.2 mg/dL (0.6-1.0); GLUCOSE SERUM 74 mg/dL (74-106); SODIUM SERUM 128 mmol/L (136-145)
[2017-05-15 08:36] LABS: POTASSIUM SERUM 2.9 mmol/L (3.5-5.1)
[2017-05-15 09:10] VITALS: BP 93/53
[2017-05-15 13:49] VITALS: BP 105/66
[2017-05-15] MEDS ORDERED: ZOS3PM IV (15:38)
[2017-05-15] MEDS ORDERED: LAC PO (15:38)
[2017-05-15] MEDS ORDERED: XARELTO10 M1 PO (15:40)
[2017-05-15 16:20] VITALS: BP 105/66
[2017-05-15 17:22] VITALS: BP 102/46
== END 2017-05-15 18:59 | DRG 643 ==
LOC: ED 17:53 → DU 21:39 → MU 05-12 21:09 → DU 05-13 11:51
PROVIDERS: Emergency Medicine; ADMIT Family Medicine
DX: E22.2 Syndrome of inappropriate secretion of antidiuretic hormone (principal); E43 Unspecified severe protein-calorie malnutrition; N17.0 Acute kidney failure with tubular necrosis; I50.43 Acute on chronic combined systolic (congestive) and diastolic (congestive) heart failure; L03.116 Cellulitis of left lower limb; I42.9 Cardiomyopathy, unspecified; Z68.41 Body mass index [BMI] 40.0-44.9, adult; I11.0 Hypertensive heart disease with heart failure; E83.42 Hypomagnesemia; I48.2 Chronic atrial fibrillation; M19.90 Unspecified osteoarthritis, unspecified site; E03.9 Hypothyroidism, unspecified; I25.10 Atherosclerotic heart disease of native coronary artery without angina pectoris; F41.0 Panic disorder [episodic paroxysmal anxiety]; D64.9 Anemia, unspecified; M71.22 Synovial cyst of popliteal space [Baker], left knee; E66.01 Morbid (severe) obesity due to excess calories; I25.2 Old myocardial infarction; Z95.5 Presence of coronary angioplasty implant and graft; Z87.891 Personal history of nicotine dependence; Z79.01 Long term (current) use of anticoagulants; Z79.82 Long term (current) use of aspirin; Z85.3 Personal history of malignant neoplasm of breast; Z90.10 Acquired absence of unspecified breast and nipple
CPT/HCPCS: 83880; 84439; 97110-GP; 97530-GP; J0696; J1940; J2405; J2543; J2550; J3475; J3480; J3490; J7030; J7620; Q0092; Q9967